=== PATIENT | female | born 1985 | race Caucasian/White ===

== ENCOUNTER 2018-11-25 13:56 | Emergency (ER) | payer OTHER ==
[~2018-11-25] VITALS: Ht 149.9 cm; Wt 70.3 kg
[2018-11-25 14:06] VITALS: Ht 149.9 cm; Wt 70.3 kg
[2018-11-25 14:54] VITALS: BP 129/92
== END 2018-11-25 14:54 | disposition home or self-care (01) ==
LOC: ED 13:56
DX: N93.8 Other specified abnormal uterine and vaginal bleeding (principal); E11.9 Type 2 diabetes mellitus without complications; Z88.0 Allergy status to penicillin; Z98.890 Other specified postprocedural states